=== PATIENT | male | born 1990 | race Caucasian/White ===

== ENCOUNTER 2019-05-15 12:04 | Outpatient (CLI) | payer MEDICARE, MEDICAID, SELFPAY ==
--- NOTE | 2019-05-15 12:24 | XR_ITS ---
WS: [id number] INDICATION: SIMULATION EDUCATOR shunt status TECHNIQUE: Shunt series 5 views FINDINGS: Right parietal shunt catheter with tip directed towards the midline. Tubing overlying the c alvarium and right neck appear intact. Tubing over the right hemithorax appears intact. Catheter enters the right upper quadrant with tip in the left upper abdomen. Lungs are well aerated. XR/XR shunt series IMPRESSION: Intact SIMULATION EDUCATOR shunt tubing
--- NOTE | 2019-05-15 12:24 | CT_ITS ---
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 DLP: 987.[address] scans at [facility] use at least one of these dose optimization techniques: automat ed exposure control; mA and/or kV adjustment per patient size (includes targeted exams where dose is matched to clinical indication); or iterative reconstruction. Findings: The ventricular system is normal without shift. The ventricular shunt tube enters from an osteotomy i n the posterior right occipital bone and crosses the midline to end in the parenchyma of the junction of the left frontal and parietal lobes. The right frontal craniotomy defect is noted. No recent infa rct or hemorrhage is seen. There are no abnormal intracerebral masses. The cerebellum and brainstem a re not remarkable. Bony windows of the skull and skull base show no fractures or erosions. The mastoid air cells, technology development intern al auditory canals, sella turcica, intraorbital contents, and paranasal sinuses are unremarkable. CT/CT head wo con* [id number] Impression: 1. Normal ventricles. 2. No change in position of ventricular shunt catheter. 3. Right frontal craniotomy defect unchanged.
== END 2019-05-15 12:05 | disposition home or self-care (01) ==
LOC: RAD 12:07
PROVIDERS: Family Provider Nurse Practitioner Family; PCP Nurse Practitioner Family; Visit Provider Licensed Practical Nurse
DX: Z98.2 Presence of cerebrospinal fluid drainage device (principal)
CPT/HCPCS: 70250; 70450; 71046; 72040; 74019

== ENCOUNTER → 2019-06-08 12:36 | Outpatient (BNVA) | payer MEDICARE, MEDICAID, SELFPAY | PROVIDERS: Family Provider Nurse Practitioner Family; PCP Nurse Practitioner Family; Visit Provider Specialist | DX: G43.019 Migraine without aura, intractable, without status migrainosus (principal); G80.1 Spastic diplegic cerebral palsy | CPT/HCPCS: 99213 ==

== ENCOUNTER 2019-06-30 12:23 | Outpatient (CLI) | payer MEDICARE, MEDICAID, SELFPAY ==
--- NOTE | 2019-06-30 12:35 | XR_ITS ---
WS: [id number] Chest 2 views, 06/30/2019 Clinical Data: shortness of breath Comparison: None. Findings: No nodules, masses or effusions are seen. The heart is normal. The pulmonary vascularity is not increased. No pneumonia or pneumothorax is seen. The diaphragms are flattened. There is a small catheter which overlies the left upper quadrant and extends just to the right of the T12 vertebral leandra dy. There is a minimal dextroscoliosis. XR/XR chest 2V* [id number] Impression: Hyperinflation.
[2019-06-30 14:03] LABS: Basophils % 0.6 %; Eosinophils # 0.1 10^3/uL (0.0-0.8); Eosinophils % 1.9 %; Hematocrit 49.7 % (42.0-52.0); Hemoglobin 16.4 g/dL (11.7-16.6); Lymphocytes # 1.6 10^3/uL (0.8-4.8); Lymphocytes % 24.6 %; Mean Corpuscular Hemoglobin 30.8 pg (28.0-34.0); Mean Corpuscular Volume 93.2 fL (80-94); Monocytes # 0.5 10^3/uL (0.2-0.9); Neutrophils # 4.2 10^3/uL (1.8-7.7); Neutrophils % 65.6 %; Nucleated Red Blood Cells % 0 %; Platelet Count 277 10^3/cmm (130-400); Red Blood Count 5.33 10^6/uL (4.1-5.3); Red Cell Distribution Width 12.1 % (12.1-15.1); White Blood Count 6.4 10^3/uL (4.0-10.0)
[2019-07-01 16:00] LABS: Immunoglobulin E 8 kU/L (<OR=114)
== END 2019-06-30 12:24 | disposition home or self-care (01) ==
LOC: RT 12:29
PROVIDERS: Family Provider Nurse Practitioner Family; PCP Nurse Practitioner Family; Visit Provider Internal Medicine Critical Care Medicine
DX: J45.909 Unspecified asthma, uncomplicated (principal)
CPT/HCPCS: 71046; 82785; 85025

== ENCOUNTER 2020-01-22 10:08 | Outpatient (CLI) | payer MEDICARE, MEDICAID, SELFPAY ==
--- NOTE | 2020-01-22 10:30 | CT_ITS ---
WS: [id number] CT HEAD NONCONTRAST HISTORY: dizziness TECHNIQUE: Contiguous axial imaging performed through the brain in 2.5 mm imaging. Bone and soft tiss ue windows. Sagittal and coronal reformats reviewed. All CT scans at [facility] use at ast one of these dose optimization techniques: automated exposure control; mA and/or kV adjustment pe r patient size (includes targeted exams where dose is matched to clinical indication); or iterative r econstruction. DLP: 747.48 mGy.cm COMPARISON: 05/15/2019, 05/19/2018 No acute intracranial hemorrhage, midline shift or mass effect. No atrophy or prior infarcts or herniation. OPERATIONAL INTELLIGENCE ANALYST shunt catheter enters through the posterior RIGHT par ietal occipital lobe and crosses through the atria of the RIGHT lateral ventricle. Tip of the cathete r crosses the midline and may terminate in the LEFT frontal lobe or still be contained within the nicho tricle. No change in position. There is no hemorrhage along the tract. Ventricles: Lateral ventricles are slitlike as on the prior examination. Normal-sized third ventricl e and fourth ventricle. No hydrocephalus. No midline shift. No herniation. Paranasal sinuses: As visualized are clear. Mastoid air cells: Well pneumatized. Calvarium and scalp: RIGHT craniotomy with calvarial defects which are stable. CT/CT head wo con* [id number] IMPRESSION: 1. Stable OPERATIONAL INTELLIGENCE ANALYST shunt catheter positioning since 05/19/2018. Tip of the catheter t erminates in the region of the LEFT frontal horn. 2. Lateral ventricles are slitlike and unchanged since 05/19/2018.
--- NOTE | 2020-01-22 11:00 | XRR_ITS ---
PROCEDURE INFORMATION: Exam: XR Shunt Series With 4 XR Procedures Exam date and time: 01/22/2020 10:43 AM Age: 29 years old Clinical indication: Other: Dizziness, shunt; Prior surgery; Patient HX: PT has had shunt since 4 years old, dizziness/nausea for last 5 days. ; Additional info: Dizzness with shunt TECHNIQUE: Imaging protocol: XR Shunt Series was performed with skull less than 4 views, neck 1 view, chest 1 view, and abdomen 1 view. COMPARISON: No relevant prior studies available. FINDINGS: Tubes, catheters and devices: Ventriculostomy tube via the right parietal approach. Tubing extends inferiorly in the soft tissues of the right neck. Sinuses: Visualized paranasal sinuses are well aerated. Airway: Upper airway and trachea are unremarkable in the neck and chest. Lungs: See Bones/joints finding. Gastrointestinal tract: In regards to the abdomen, ventriculostomy tubing is in the upper abdomen with the tip in the perisplenic region and or gastric region. Bones/joints: Apparent prior craniotomy within the frontal parietal calvarium. Cervical spine is unremarkable. Chest radiograph is normal. No infiltrate. Shunt tubing is best visualized on the lateral view and appears contiguous to the abdomen. Soft tissues: Unremarkable. XR/XR shunt series IMPRESSION: 1. See above 2. Ventriculostomy tube via the right parietal approach. 3. Apparent prior craniotomy within the frontal parietal calvarium.
== END 2020-01-22 10:09 | disposition home or self-care (01) ==
LOC: CT 10:09
PROVIDERS: PCP Nurse Practitioner Family; Visit Provider Nurse Practitioner Family
DX: Z98.2 Presence of cerebrospinal fluid drainage device (principal); R42 Dizziness and giddiness
CPT/HCPCS: 70250; 70450; 71046; 72040; 74019

== ENCOUNTER 2020-01-26 06:00 | Outpatient (RCR) | payer MEDICARE, MEDICAID, SELFPAY | END 2020-02-03 23:59 | disposition home or self-care (01) | LOC: WPT 06:00 | PROVIDERS: PCP Nurse Practitioner Family; Referring Provider Nurse Practitioner Family; Visit Provider Nurse Practitioner Family | DX: M25.562 Pain in left knee (principal) | CPT/HCPCS: 97110; 97163 ==

== ENCOUNTER → 2020-01-28 13:00 | Outpatient (BNVA) | payer MEDICARE, MEDICAID, SELFPAY | PROVIDERS: PCP Nurse Practitioner Family; Visit Provider Licensed Practical Nurse | DX: Z98.2 Presence of cerebrospinal fluid drainage device (principal) | CPT/HCPCS: 99213 ==

== ENCOUNTER 2020-02-04 06:00 | Outpatient (RCR) | payer MEDICARE, MEDICAID, SELFPAY | END 2020-03-05 23:59 | disposition home or self-care (01) | LOC: WPT 06:00 | PROVIDERS: PCP Nurse Practitioner Family; Referring Provider Nurse Practitioner Family; Visit Provider Nurse Practitioner Family | DX: M25.562 Pain in left knee (principal) | CPT/HCPCS: 97110 ==

== ENCOUNTER 2020-03-06 06:00 | Outpatient (RCR) | payer MEDICARE, MEDICAID, SELFPAY | END 2020-04-04 23:59 | disposition home or self-care (01) | LOC: WPT 06:00 | PROVIDERS: PCP Nurse Practitioner Family; Referring Provider Nurse Practitioner Family; Visit Provider Nurse Practitioner Family | DX: M25.562 Pain in left knee (principal) | CPT/HCPCS: 97110; 97164 ==

== ENCOUNTER → 2020-05-26 14:40 | Outpatient (BNVA) | payer MEDICARE, MEDICAID, SELFPAY | PROVIDERS: PCP Nurse Practitioner Family; Visit Provider Nurse Practitioner Family | DX: R30.0 Dysuria (principal); N39.0 Urinary tract infection, site not specified | CPT/HCPCS: 81003; 87086 ==

== ENCOUNTER → 2020-07-06 11:28 | Outpatient (BNVA) | payer MEDICARE, MEDICAID, SELFPAY | PROVIDERS: PCP Nurse Practitioner Family; Visit Provider Nurse Practitioner Family | DX: Z79.899 Other long term (current) drug therapy (principal); E78.5 Hyperlipidemia, unspecified | CPT/HCPCS: 80053; 80061; 83036; 84443; 85025 ==

== ENCOUNTER → 2020-10-17 14:35 | Outpatient (BNVA) | payer MEDICARE, MEDICAID, SELFPAY | PROVIDERS: PCP Nurse Practitioner Family; Visit Provider Nurse Practitioner Family | DX: J22 Unspecified acute lower respiratory infection (principal); R06.02 Shortness of breath; R07.9 Chest pain, unspecified; M25.562 Pain in left knee | CPT/HCPCS: 71046 ==

== ENCOUNTER 2020-10-31 06:00 | Outpatient (RCR) | payer MEDICARE, MEDICAID, SELFPAY | END 2020-11-02 23:59 | disposition home or self-care (01) | LOC: WPT 06:00 | PROVIDERS: PCP Nurse Practitioner Family; Referring Provider Nurse Practitioner Family; Visit Provider Nurse Practitioner Family | DX: M25.562 Pain in left knee (principal) | CPT/HCPCS: 97110; 97140; 97162 ==

== ENCOUNTER 2020-11-03 06:00 | Outpatient (RCR) | payer MEDICARE, MEDICAID, SELFPAY | END 2020-12-03 23:59 | disposition home or self-care (01) | LOC: WPT 06:00 | PROVIDERS: PCP Nurse Practitioner Family; Referring Provider Nurse Practitioner Family; Visit Provider Nurse Practitioner Family | DX: M25.562 Pain in left knee (principal) | CPT/HCPCS: 97110; 97112; 97140; 97530 ==

== ENCOUNTER 2020-12-04 06:00 | Outpatient (RCR) | payer MEDICARE, MEDICAID, SELFPAY | END 2021-01-03 23:59 | disposition home or self-care (01) | LOC: WPT 06:00 | PROVIDERS: PCP Nurse Practitioner Family; Referring Provider Nurse Practitioner Family; Visit Provider Nurse Practitioner Family | DX: M25.562 Pain in left knee (principal) | CPT/HCPCS: 97110; 97530 ==

== ENCOUNTER 2021-02-09 13:02 | Outpatient (CLI) | payer MEDICARE, MEDICAID, SELFPAY ==
--- NOTE | 2021-02-09 13:15 | CT_ITS ---
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 Bone and soft tiss ue windows. Sagittal and coronal reformats reviewed. All CT scans at [facility] use at least one of these dose optimization techniques: automated exposure control; mA and/or kV adjustment per pa tient size (includes targeted exams where dose is matched to clinical indication); or iterative recon struction. DLP: 925.91 mGycm COMPARISON: 01/22/2020 HOT WORKER shunt catheter enters through the RIGHT parietal bone with the catheter extending through the RIGH T occipital horn across the midline adjacent to the anterior horn of the LEFT lateral ventricle. No h emorrhage. No interval change in appearance of the ventricles. Ventricles remain slitlike. No atrophy or prior infarcts or herniation. Ventricles: Normal size with no hydrocephalus. Paranasal sinuses: As visualized are clear. Mastoid air cells: Well pneumatized. Calvarium and scalp: Prior craniotomy to the RIGHT frontal vertex. There is a RIGHT parietal enoch hol e with a HOT WORKER shunt catheter enters. CT/CT head wo con* [id number] IMPRESSION: 1. Stable HOT WORKER shunt catheter over multiple prior examinations. Tip of the katy ter terminates in the region of the LEFT frontal horn. 2. Slitlike lateral ventricles. No hydrocephalus.
--- NOTE | 2021-02-09 13:30 | XR_ITS ---
WS: [id number] SHUNT SERIES HISTORY: SUPERINTENDENT QUARRY shunt series COMPARISON: 01/22/2020 AP and lateral skull and neck, AP and lateral thorax, AP and lateral abdomen. Tip of the SUPERINTENDENT QUARRY shunt catheter is to the LEFT of midline over the skull. Catheter enters the posterior inferior RIGHT parietal bone. Catheter is contiguous through the soft tissues of the neck and over th e RIGHT thorax. Catheter enters the peritoneum in the RIGHT upper quadrant. The tip is just beneath t he LEFT diaphragm. Normal appearance of the bowel gas. Note displacement of the bowel gas. XR/XR shunt series IMPRESSION: No change in the appearance of the SUPERINTENDENT QUARRY shunt catheter. No breaks along the katy ter or clothing.
== END 2021-02-09 13:03 | disposition home or self-care (01) ==
PROVIDERS: PCP Nurse Practitioner Family; Visit Provider Specialist
DX: Z98.2 Presence of cerebrospinal fluid drainage device (principal)
CPT/HCPCS: 70250; 70450; 71046; 72040; 74019

== ENCOUNTER 2021-03-16 11:35 | Outpatient (CLI) | payer MEDICARE, MEDICAID, SELFPAY ==
--- NOTE | 2021-03-16 15:00 | CT_ITS ---
WS: [id number] CT CHEST AND ABDOMEN TECHNIQUE: Noncontrast CT of the chest and abdomen with coronal and sagittal reformatted images.. CLINICAL INFORMATION: Z98.2 - Presence of cerebrospinal fluid drainage device COMPARISON: None. DLP: 519.[address] scans at [facility] use at least one of these dose optimization techniques: automated e xposure control; mA and/or kV adjustment per patient size (includes targeted exams where dose is matc hed to clinical indication); or iterative reconstruction. CT CHEST ABDOMEN: In the area of palpable concern, right lower chest there appears to be a small fastener or connection device in this area along the shunt tubing. No evidence of surrounding inflammation or skin thickeni ng. No evidence of abscess or drainable fluid collection. This area is unchanged in appearance since 2016. Shunt tubing is intact traversing the right chest wall extending into the right upper quadrant with t ip in the left upper quadrant under the diaphragm. This appears unchanged since 2016. No evidence of fluid collection or pseudocyst at the tip of the catheter. Both lungs are well aerated. No acute pulmonary infiltrates. No focal pneumonia or pleural fluid. No suspicious pulmonary parenchymal opacities. Normal caliber thoracic aorta. Normal thyroid. No mediast inal or hilar lymphadenopathy. No axillary lymphadenopathy. Noncontrast liver and spleen are normal. Normal noncontrast gallbladder. Normal GE junction. Air-flui d level within the stomach. Adrenal glands are normal. No hydronephrosis in either kidney. Normal kesha iber abdominal aorta. No adenopathy in the upper abdomen. No other significant findings. CT/CT chest abdomen wo con IMPRESSION: 1. In the area of palpable concern, in the right lower chest overlying the sneha nt catheter no suspicious abnormalities. No abscess or fluid collection. Small fastener or connection device in this area likely corresponds to the palpable a bnormality. This is unchanged in appearance since 2016 2. Shunt tubing appears intact with tip in the left upper quadrant unchanged s irene 2015 3. No other significant abnormalities.
== END 2021-03-16 11:36 | disposition home or self-care (01) ==
PROVIDERS: PCP Nurse Practitioner Family; Visit Provider Nurse Practitioner Family
DX: Z98.2 Presence of cerebrospinal fluid drainage device (principal); R22.2 Localized swelling, mass and lump, trunk
CPT/HCPCS: 71250; 74150

== ENCOUNTER → 2021-05-29 15:19 | Outpatient (BNVA) | payer MEDICARE, MEDICAID, SELFPAY | PROVIDERS: PCP Nurse Practitioner Family; Visit Provider Specialist | DX: G43.019 Migraine without aura, intractable, without status migrainosus (principal); J45.40 Moderate persistent asthma, uncomplicated; G80.1 Spastic diplegic cerebral palsy; Z98.2 Presence of cerebrospinal fluid drainage device; Z71.89 Other specified counseling | CPT/HCPCS: 99214 ==

== ENCOUNTER → 2023-01-18 13:16 | Outpatient (BNVA) | payer MEDICARE, MEDICAID, SELFPAY | PROVIDERS: PCP Nurse Practitioner; Visit Provider Nurse Practitioner | DX: R51.9 Headache, unspecified (principal); K52.9 Noninfective gastroenteritis and colitis, unspecified | CPT/HCPCS: 87400; 87426 ==

== ENCOUNTER → 2023-09-09 14:12 | Outpatient (BNVA) | payer MEDICARE, MEDICAID, SELFPAY | PROVIDERS: PCP Nurse Practitioner Family; Visit Provider Nurse Practitioner Family | DX: M25.512 Pain in left shoulder; G89.29 Other chronic pain | CPT/HCPCS: 73030 ==

== ENCOUNTER 2023-10-08 15:57 | Outpatient (CLI) | payer MEDICARE, MEDICAID, SELFPAY ==
--- NOTE | 2023-10-08 16:30 | CT_ITS ---
WS: [id number] CT HEAD NONCONTRAST HISTORY: G44.89 - Other headache syndrome TECHNIQUE: Contiguous axial imaging performed through the brain in 2.5 mm imaging. Bone and soft tiss ue windows. Sagittal and coronal reformats reviewed. All CT scans at [facility] use at least one of these dose optimization techniques: automated exposure control; mA and/or kV adjustment per pa tient size (includes targeted exams where dose is matched to clinical indication); or iterative recon struction. DLP: 977.81 mGy.cm COMPARISON: 02/09/2021 Reidentified is a RIGHT parietal MASTER DYER shunt catheter which crosses the midline and terminates near the anterior horn LEFT lateral ventricle. Very similar in appearance to the prior study. No acute intracranial hemorrhage, midline shift or mass effect. No atrophy or prior infarcts or herniation. No mass effect. Ventricles: Ventricles are slitlike as on prior studies. Paranasal sinuses: As visualized are clear. Mastoid air cells: Well pneumatized. Calvarium and scalp: Prior RIGHT frontal craniotomy. CT/CT head wo con* [id number] IMPRESSION: 1. Stable appearance of the RIGHT parietal MASTER DYER shunt catheter with tip terminat ing in the anterior horn LEFT lateral ventricle. 2. Ventricles remain slitlike and similar to prior studies. 3. No edema or mass effect.
== END 2023-10-08 15:58 | disposition home or self-care (01) ==
LOC: RAD 15:57
PROVIDERS: PCP Nurse Practitioner Family; Visit Provider Nurse Practitioner Family
DX: G44.89 Other headache syndrome (principal); G80.1 Spastic diplegic cerebral palsy; Z98.2 Presence of cerebrospinal fluid drainage device
CPT/HCPCS: 70450

== ENCOUNTER 2023-10-22 06:00 | Outpatient (RCR) | payer MEDICARE, MEDICAID, SELFPAY | END 2023-11-03 23:59 | disposition home or self-care (01) | LOC: WPT 06:00 | PROVIDERS: PCP Nurse Practitioner Family; Visit Provider Nurse Practitioner Family | DX: M25.512 Pain in left shoulder (principal); G89.29 Other chronic pain | CPT/HCPCS: 97110; 97112; 97140; 97163 ==

== ENCOUNTER 2023-11-04 06:00 | Outpatient (RCR) | payer MEDICARE, MEDICAID, SELFPAY | END 2023-12-04 23:59 | disposition home or self-care (01) | LOC: WPT 06:00 | PROVIDERS: PCP Nurse Practitioner Family; Visit Provider Nurse Practitioner Family | DX: M25.512 Pain in left shoulder (principal); G89.29 Other chronic pain | CPT/HCPCS: 97110; 97112; 97140; 97530 ==

== ENCOUNTER 2023-12-05 06:00 | Outpatient (RCR) | payer MEDICARE, MEDICAID, SELFPAY | END 2024-01-04 23:59 | disposition home or self-care (01) | LOC: WPT 06:00 | PROVIDERS: PCP Nurse Practitioner Family; Visit Provider Nurse Practitioner Family | DX: M25.512 Pain in left shoulder (principal); G89.29 Other chronic pain | CPT/HCPCS: 97110 ==

== ENCOUNTER → 2024-04-09 11:36 | Outpatient (BNVA) | payer MEDICARE, MEDICAID, SELFPAY | PROVIDERS: PCP Nurse Practitioner Family; Visit Provider Nurse Practitioner Family | DX: E78.5 Hyperlipidemia, unspecified (principal); Z98.2 Presence of cerebrospinal fluid drainage device; J45.40 Moderate persistent asthma, uncomplicated; Z79.899 Other long term (current) drug therapy; E55.9 Vitamin D deficiency, unspecified | CPT/HCPCS: 80053; 80061; 81003; 82306; 83036; 84443; 85025 ==